=== PATIENT | male | born 1985 | race Caucasian/White ===

== ENCOUNTER 2022-02-21 18:25 | Emergency (ER) | payer OTHER, MEDICAID, SELFPAY ==
[2022-02-21 18:32] VITALS: BP 127/73; PULSE 74; RESP 19; TEMP 36.3; O2SAT 97; BMI 22.4
--- NOTE | 2022-02-21 22:00 | ED_ITS ---
HPI - Dental/Oral General Chief complaint: Dental/Oral Stated complaint: right/lower jaw pain x2 days Time Seen by Provider: 02/21/22 21:54 Source: patient Mode of arrival: Family Vehicle Limitations: no limitations History of Present Illness HPI Narrative: This is a 36-year-old male with complaint of right lower jaw pain for the past 2 days he states he has poor dentition normally and has an appointment scheduled on Tuesday with a dentist. Patient states pain has just been uncontrolled he is tried ibuprofen and Tylenol at home and has had significant difficulty with sleeping. Had some slight swelling localized at the posterior tooth on the right lower jaw but denies any significant facial swelling, redness, no foul taste, patient has not noted any swelling of the tongue or airway. Denies fevers or chills. Denies chest pain shortness of breath or nausea or vomiting. States no daily medications, no known drug allergies denies any major surgeries. He does use tobacco, drinks occasionally, uses marijuana. Offered dental block he defers this and prefers to do Toradol IM. Related Data Previous Rx's Medication Instructions Recorded meloxicam 7.5 mg tablet 7.5 mg PO BID PRN pain #14 tabs 02/21/22 penicillin V potassium 500 mg 500 mg PO QID 10 days #40 tabs 02/21/22 tablet Allergies Allergy/AdvReac Type Severity Reaction Status Date / Time No Known Drug Allergies Allergy Verified 02/21/22 18:32 Review of Systems Review of Systems ROS Unobtainable: All systems reviewed & are unremarkable except as noted in HPI and below Patient History Social History Smoking Status: Current every day smoker Smoking Status: Current every day smoker tobacco type: cigarettes alcohol intake frequency: holidays/special occasions only Substance Use Type: marijuana Exam Narrative Exam Narrative: GEN: well nourished, well appearing male, alert and oriented x 3, patient appears to be in mild distress. HEENT: Atraumatic, pupils are equal round reactive to light, extraocular movements are intact, nares are clear, TMs are clear with no fluid, there is no conjunctival pallor. Throat is clear without any exudates, erythema, tonsillar enlargement or uvular deviation, patient has poor dentition with multiple caries with significant caries in the right posterior lower. Tooth number 32 but has significant change his multiple teeth throughout his mouth. Some slight swelling localized, no obvious purulent drainage. No erythema, facial changes, no swelling of the oropharynx. Normal speech. No difficulty with secretions or swallowing. HEART: Regular rate and rhythm without murmur, clicks, rubs. LUNGS:Lungs clear to auscultation, no wheezes, rales, crackles, chest moves symmetrically ABD:bowel sounds normal, soft, non-tender, no guarding, rebound, rigidity, no masses noted, no hepatosplenomegaly MSCL: Non-tender, no muscle atrophy, muscles strength 5/5 upper and lower ext remities, full range of motion, normal gait NEURO:CN 2-12 intact, sensation normal SKIN: No rash, erythema or other skin changes Initial Vital Signs Initial Vital Signs: Vital Signs Temperature 97.3 F L 02/21/22 18:32 Pulse Rate 74 02/21/22 18:32 Respiratory Rate 19 02/21/22 18:32 Blood Pressure 127/73 02/21/22 18:32 Pulse Oximetry 97 02/21/22 18:32 Oxygen Delivery Method 02/21/22 18:32 Course Orders Ordered: Discontinued Medications Ketorolac Tromethamine (Ketorolac 30 Mg/Ml Vial) 30 mg IM NOW ONE Stop: 02/21/22 22:01 Last Admin: 02/21/22 22:10 Dose: 30 mg Documented By: GALLO Penicillin V Potassium (Penicillin 250 Mg Tab Prepack) 1 bottle MISC SEEINSTR ONE Stop: 02/21/22 22:01 Last Admin: 02/21/22 22:10 Dose: 1 bottle Documented By: GALLO Vital Signs Vital signs: Vital Signs - 8 hr 02/21/22 18:32 Temperature 97.3 F L Pulse Rate 74 Respiratory Rate 19 Blood Pressure 127/73 Pulse Oximetry 97 Oxygen Delivery Method Room Air MDM - Dental/Oral MDM Narrative Medical decision making narrative: This is a 36-year-old male with complaint of significant dental pain with known dental caries. Patient has tried ibuprofen Tylenol without any improvement. Plan for oral antibiotic as there is some localized swelling, Toradol IM he was offered dental block but defers, antibiotic prescription and can continue Tylenol and add meloxicam as needed. Patient has reassuring overall exam. Discharge Plan Departure Patient Disposition: Home Clinical Impression: Toothache Instructions: Tooth Abscess Activity Restrictions/Additional Instructions: Please follow-up with your dentist on Tuesday. Please take antibiotics until completely gone. You may take Tylenol up to a 1000 mg every 6 hours and meloxicam 1 tablet every 12 hours as needed for pain. Prescription sent to [facility] in [place]. Please return for fevers, increasing redness, swelling, swelling of her airway, tongue, difficulty with speech, swallowing saliva secretions or other new or concerning symptoms. Prescriptions: New penicillin V potassium 500 mg tablet 500 mg PO QID 10 Days Qty: 40 0RF meloxicam 7.5 mg tablet 7.5 mg PO BID PRN (Reason: pain) Qty: 14 0RF Visit Report Forms: Patient Portal/API
[2022-02-21] MEDS: KETOROLAC 30 MG/ML VIAL IM (22:10)
[2022-02-21] MEDS: PENICILLIN 250 MG TAB PREPACK 1 BOTTLE MISC (22:10)
== END 2022-02-21 22:16 | disposition home or self-care (01) ==
PROVIDERS: Emergency Provider Emergency Medicine
DX: K02.9 Dental caries, unspecified (principal)
CPT/HCPCS: 96372; 99283; J1885

== ENCOUNTER 2023-10-14 03:18 | Emergency (ER) | payer OTHER, MEDICAID, SELFPAY ==
[2023-10-14 03:24] VITALS: BP 139/72; PULSE 57; RESP 16; TEMP 36.9; O2SAT 99; BMI 24.4
--- NOTE | 2023-10-14 03:29 | DI.RAD.S_ITS ---
PROCEDURE: XR FOREARM RT 2V INDICATIONS: injury TECHNIQUE: 2 views of the forearm were acquired. COMPARISON: None. FINDINGS: Bones: No fractures or dislocations. No suspicious bony lesions. Soft tissues: No suspicious soft tissue calcifications or masses. Mild soft tissue swelling over the dorsal right mid forearm. IMPRESSION: Soft tissue swelling overlying the mid right forearm without underlying fracture or dislocation. If there is persistent clinical concern for occult fracture given adequate mechanism of injury, consider repeat imaging in 10-14 days. Dictated by: Dwayne Cunningham M.D. on 10/14/2023 at 9:37 Approved by: Dwayne Cunningham M.D. on 10/14/2023 at 9:38
--- NOTE | 2023-10-14 05:50 | ED_ITS ---
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 Has complained of right forearm pain and swelling since then. Worse pain with finger movements. Related Data Previous Rx's Medication Instructions Recorded bupropion HCl 150 mg tablet,12 hr 150 mg PO Q12H #60 ea 05/26/22 sustained-release (Wellbutrin SR) Allergies Allergy/AdvReac Type Severity Reaction Status Date / Time No Known Drug Allergies Allergy Verified 05/26/22 16:07 Patient History Medical History (Updated 10/14/23 @ 06:12 by Matias Etienne MD) Asthma PTSD (post-traumatic stress disorder) (~2002) ADHD Disease of spine (~2002) Tinnitus (~2009) Hearing loss (~2009) Depression (~2003) Tobacco dependence Family History (Updated 06/30/22 @ 21:17 by Darlene North) Father Lung disease Grandfather Cancer Grandmother Cancer History of heart disease Family/Other Mental health problem Social History Smoking Status: Current every day smoker Smoking Status: Current every day smoker tobacco type: cigarettes alcohol intake frequency: holidays/special occasions only Substance Use Type: marijuana Exam Narrative Exam Narrative: GENERAL: Well-developed patient, in mild distress. HEAD: Atraumatic. Normocephalic. EYES: Pupils equal round and reactive. Extraocular motions intact. No scleral icterus. No injection or drainage. ENT: Nose without bleeding, purulent drainage. Throat without erythema, tonsillar hypertrophy or exudate. Airway patent. NECK: Trachea midline. Non tender CARDIOVASCULAR: Regular rate and rhythm without murmurs, gallops, or rubs. RESPIRATORY: Clear to auscultation. Breath sounds equal bilaterally. No wheezes, rales, or rhonchi. GASTROINTESTINAL: Abdomen soft, non-tender, nondistended. EXTREMITIES: Left forearm with mid ulnar area soft tissue swelling, slight fl uctuance, not woody hard, in an area of approximally 8 by 4 cm, non- circumferential. Distal fingers cap refill good. Flexion and extension at wrist approximately 45? limited by forearm pain. No tenderness or deformity at the left elbow, upper arm, shoulder, clavicle. BACK: Nontender without deformity or crepitance. No flank tenderness. NEURO: AOx3. SKIN: No rash or erythema of visible areas Initial Vital Signs Initial Vital Signs: Vital Signs Temperature 98.5 F 10/14/23 03:24 Pulse Rate 57 L 10/14/23 03:24 Respiratory Rate 16 10/14/23 03:24 Blood Pressure 139/72 10/14/23 03:24 Pulse Oximetry 99 10/14/23 03:24 Oxygen Delivery Method Room Air 10/14/23 03:24 Course Orders Ordered: Discontinued Medications Hydromorphone HCl (Hydromorphone 1 Mg Inj) 1 mg IM NOW ONE Stop: 10/14/23 06:09 Last Admin: 10/14/23 06:17 Dose: 1 mg Documented By: NATE Tramadol HCl (Tramadol 50 Mg Prepack) 1 bottle MISC DIRECTED ONE Stop: 10/14/23 06:13 Last Admin: 10/14/23 06:17 Dose: 1 bottle Documented By: NATE Vital Signs Vital signs: Vital Signs - 8 hr 10/14/23 03:24 10/14/23 06:00 Temperature 98.5 F Pulse Rate 57 L 71 Respiratory Rate 16 18 Blood Pressure 139/72 143/90 H Pulse Oximetry 99 99 Oxygen Delivery Method Room Air MDM - Extremity Injury (Upper) MDM Narrative Medical decision making narrative: Blunt trauma to right forearm earlier this morning, some swelling, pain but can flex and extend at wrist, swelling and tenderness is not [place] hard, doubt compartment syndrome at this time, we discussed compartment syndrome signs and symptoms. Soft tissue contusion and swelling lateral ulnar surface and extensor surface right upper arm. Neurovascularly intact. Sling for elevation, encouraged to keep above heart level to reduce swelling, case discussed with on- call Orthopedic surgery Dr. Ayers, who can see patient in follow-up. Discharge Plan Departure Patient Disposition: Home Clinical Impression: Contusion of forearm, right Activity Restrictions/Additional Instructions: Contusion direct blow to the right forearm approximately 2:00 a.m. while working on a car, with entrapment perhaps 30 seconds but released with the assistance of another adult. Subsequent swelling and pain. On exam there is swelling predominantly along the ulnar aspect of the right forearm. Right-hand dominant known. He seemed to have sensation intact to light touch however into the fingers, which also are warm with good capillary refill. Vascular structures seem intact. There is some fluctuance to the swelling, likely blood fluid collection that will resolve and absorb. It is possible to develop swelling in a compartment of the extremity that we will swish the nerve in blood vessel bundles and cause further damage. However at this time is seems like there is not that degree of [place] hardness to warrant needle pressure measurements or incision fasciotomy treatment. Apply ice to help swelling. Keep right forearm elevated above the level heart, perhaps sleeping on your back with arm in a sling on your chest, with cold pack as tolerated. Case discussed with orthopedic surgery Dr. Ayers on-call, he can see you in follow-up on Tuesday. Return to this/nearest emergency department for any change worsening symptoms or any concerns prior Prescriptions: No Action bupropion HCl [Wellbutrin SR] 150 mg tablet sustained-release 12 hr 150 mg PO Q12H Qty: 60 11RF Referrals: Iris Hicks MD [Physician] - Reshma Briones DO [Primary Care Provider] - Stand Alone Forms: Patient Portal/API
[2023-10-14 06:00] VITALS: BP 143/90; PULSE 71; RESP 18; O2SAT 99
[2023-10-14] MEDS: HYDROMORPHONE 1 MG INJ IM (06:17)
[2023-10-14] MEDS: TRAMADOL 50 MG PREPACK 1 BOTTLE MISC (06:17)
== END 2023-10-14 06:36 | disposition home or self-care (01) ==
PROVIDERS: Emergency Provider Emergency Medicine; PCP Family Medicine
DX: S50.11XA Contusion of right forearm, initial encounter (principal); W24.1XXA Contact with transmission devices, not elsewhere classified, initial encounter; Y93.89 Activity, other specified
CPT/HCPCS: 73090; 96372; 99283; J1170